=== PATIENT | female | born 1955 | race Caucasian/White ===

== ENCOUNTER 2021-11-27 01:02 | Day surgery (SDC) | payer MEDICARE, SELFPAY ==
--- NOTE | 2021-10-30 09:42 | SUR.PREOP ---
called pt regarding prep. We discussed preps and [facility] pharmacy's number was given to the patient and she said she would call them to arrange prep.
[2021-11-08 13:21] VITALS: BMI 44.5
[2021-11-27 07:10] VITALS: BP 146/73; PULSE 73; RESP 16; TEMP 36.2; O2SAT 99; BMI 43.4
--- NOTE | 2021-11-27 07:22 | WPDGICN ---
Assessment and Plan Assessment and plan (1) Positive colorectal cancer screening using Cologuard test: Code(s): R19.5 - Other fecal abnormalities Status: Acute Assessment and Plan: Patient found to have positive screening Cologuard test. Plan is for surveillance colonoscopy be at this time. Further recommendations will be given after endoscopy. GI Consult Note Consult date/time: 11/27/21 07:22 Reason for consult: Positive Cologuard test. HPI: Savannah Garcia is a 66 year old female Found to have positive screening Cologuard test. Patient reports that her current weight appetite and bowel movements are normal. She denies abdominal pain. Patient has had no bleeding. Patient presents today for neoplasia screening. Review of Systems Review of Systems: Review of systems noncontributory. [facility] Past Medical History Medical History (Updated 11/27/21 @ 07:23 by Chaim Hall MD) Acute bronchitis due to other specified organisms Body mass index [BMI] 40.0-44.9, adult (11/11/18) Elevated blood sugar Encounter for wellness examination Essential tremor Hyperlipidemia Mixed hyperlipidemia Type 2 diabetes mellitus Family History Family History (Updated 09/11/21 @ 09:[address] [facility]) Sibling Type 1 diabetes mellitus Father Family history of liver disease Mother Hyperlipidemia Daughter Endometriosis Other Family history of cardiovascular disease Social History Social History (Updated 09/11/21 @ 09:[address] [facility]) Smoking status: Never smoker Second hand tobacco smoke exposure: No Alcohol intake: never Substance use: never Substance use type: does not use Living arrangements: with family Spiritual care concerns: No Meds Home Medications and Allergies Home Medications Medication Instructions Recorded Confirmed Type blood-glucose meter (Accu-Chek #1 ea 09/24/21 Rx Alisson Plus Meter) lancets (Accu-Chek Softclix #100 ea 09/24/21 Rx Lancets) sodium sul 1.479 gram-potas ch See Rx Instructions PO PER PKG DIR 10/19/21 Rx 0.188 gram-magnes sul 0.225 gram #24 tabs tablet (Sutab) blood sugar diagnostic (Accu-Chek #100 ea 10/31/21 Rx Alisson Plus test strips) propranolol 10 mg tablet 20 mg PO Q12H 11/08/21 11/08/21 History terbinafine HCl 250 mg tablet 250 mg PO DAILY 11/08/21 11/08/21 History metformin 500 mg tablet 1,000 mg PO BID #60 tabs 11/20/21 Rx Allergies Allergy/AdvReac Type Severity Reaction Status Date / Time No Known Allergies Allergy Mild Verified 11/27/21 07:16 Exam Narrative: Physical exam reveals patient to be alert. Vital signs stable. HEENT exam is unremarkable. Patient is anicteric. Lungs are clear to auscultation and percussion. Heart is without murmur or extra sounds. Abdominal exam bowel sounds are present soft nontender with no organomegaly. Digital external rectal exam is normal.
[2021-11-27] MEDS: LACTATED RINGERS 1,000 ML 150 ML IV CONT (07:37)
[2021-11-27 07:39] LABS: Glucose Point of Care 117 mg/dl (65-105)
--- NOTE | 2021-11-27 08:05 | WPDANESEPPF ---
Anes - Initial Pre Proc Eval Procedure: Operation Date: 11/27/21 08:30 Proposed Procedures p Colonoscopy - Chaim Hall MD Date/Time: 11/27/21 08:05 Surgeon: Chaim Hall MD Pre Op Diagnosis: positive cologuard Patient Data Age: 66 Gender: F Height: 1.6 m Weight: 111.2 kg Last Vital Signs Temp 97.2 F L 11/27/21 07:10 Pulse 73 11/27/21 07:10 Resp 16 11/27/21 07:10 BP 146/73 H 11/27/21 07:10 Pulse Ox 99 11/27/21 07:10 O2 Del Method Room Air 11/27/21 07:10 Allergies Allergy/AdvReac Type Severity Reaction Status Date / Time No Known Allergies Allergy Mild Verified 11/27/21 07:16 Home Medications Medication Instructions Recorded Confirmed Type blood-glucose meter (Accu-Chek #1 ea 09/24/21 11/27/21 Rx Alisson Plus Meter) lancets (Accu-Chek Softclix #100 ea 09/24/21 11/27/21 Rx Lancets) sodium sul 1.479 gram-potas ch See Rx Instructions PO PER PKG DIR 10/19/21 11/27/21 Rx 0.188 gram-magnes sul 0.225 gram #24 tabs tablet (Sutab) blood sugar diagnostic (Accu-Chek #100 ea 10/31/21 11/27/21 Rx Alisson Plus test strips) propranolol 10 mg tablet 20 mg PO Q12H 11/08/21 11/27/21 History terbinafine HCl 250 mg tablet 250 mg PO DAILY 11/08/21 11/27/21 History metformin 500 mg tablet 1,000 mg PO BID #60 tabs 11/20/21 11/27/21 Rx Laboratory Tests 11/27/21 07:31 POC Capillary Glucose 117 mg/dl H mg/dl (65-105) Patient hx anesthesia problems: none Family hx anesthesia problems: none Results Review: All pre-operative results and documents have been reviewed as part of the pre-operative evaluation. [facility] Past Medical History Medical History (Updated 11/27/21 @ 07:23 by Chaim Hall MD) Acute bronchitis due to other specified organisms Body mass index [BMI] 40.0-44.9, adult (11/11/18) Elevated blood sugar Encounter for wellness examination Essential tremor Hyperlipidemia Mixed hyperlipidemia Type 2 diabetes mellitus Family History Family History (Updated 09/11/21 @ 09:05 by Sakina Tran [facility]) Sibling Type 1 diabetes mellitus Father Family history of liver disease Mother Hyperlipidemia Daughter Endometriosis Other Family history of cardiovascular disease Social History Social History (Updated 09/11/21 @ 09:04 by Sakina Tran [facility]) Smoking status: Never smoker Second hand tobacco smoke exposure: No Alcohol intake: never Substance use: never Substance use type: does not use Living arrangements: with family Spiritual care concerns: No Anes - Eval Final PreProcedure Day of Procedure 11/27/21 08:05 Patient weight: morbidly obese Heart: regular rate and rhythm Lungs: clear to auscultation Airway: Mallampati scale class II Neurological: alert and oriented Last oral intake: >/= 8 hours ASA classification: III Emergent: no Anesthetic plan: proceed Anesthesia type and monitoring: general GIVS and standard monitoring Results Review: All pre-operative results and documents have been reviewed as part of the pre-operative evaluation. Informed Consent: The patient's anesthetic plan and its attendant risks and benefits were discussed with the patient/family/POA. Questions were solicited and answers provided to the satisfaction of the patient/family/POA.
[2021-11-27] MEDS: SIMETHICONE ORAL SUSPENSION 20 MG/0.3 ML 30 ML BOTTLE 0.6 ML IRRIGATION (08:29)
[2021-11-27 08:43] VITALS: BP 105/63; PULSE 76; RESP 18; O2SAT 98
[2021-11-27 08:53] VITALS: BP 113/74; PULSE 69; RESP 24; O2SAT 99
== END 2021-11-27 09:09 | disposition home or self-care (01) ==
PROVIDERS: PCP Family Medicine; Visit Provider Internal Medicine Gastroenterology
PROC: 0DJD8ZZ Inspection of Lower Intestinal Tract, Via Natural or Artificial Opening Endoscopic (ICD-10-PCS; CPT 45378; principal; 2021-11-27 08:30)
DX: R19.5 Other fecal abnormalities (principal); D12.2 Benign neoplasm of ascending colon; D12.5 Benign neoplasm of sigmoid colon; K57.30 Diverticulosis of large intestine without perforation or abscess without bleeding; E78.2 Mixed hyperlipidemia; E11.9 Type 2 diabetes mellitus without complications; G25.0 Essential tremor; Z79.84 Long term (current) use of oral hypoglycemic drugs; E66.01 Morbid (severe) obesity due to excess calories; Z68.41 Body mass index [BMI] 40.0-44.9, adult
CPT/HCPCS: 45385; 82948; 88305; J2704; J7120

== ENCOUNTER 2022-01-23 14:30 | Outpatient (RCR) | payer MEDICARE, SELFPAY ==
[2021-11-14 09:40] VITALS: BMI 44.6
[2021-11-14 09:46] VITALS: BMI 44.6
== END 2022-01-29 10:44 | disposition home or self-care (01) ==
LOC: ANHDMC 14:30
PROVIDERS: PCP Family Medicine; Visit Provider Family Medicine
DX: E11.9 Type 2 diabetes mellitus without complications (principal); Z71.3 Dietary counseling and surveillance; Z71.89 Other specified counseling
CPT/HCPCS: 97802; G0108; G0109

== ENCOUNTER 2024-08-13 11:37 | Outpatient (CLI) | payer MEDICARE, SELFPAY ==
--- NOTE | ~2024-08-13 | XR_ITS ---
Left Knee Technique: AP, lateral, and sunrise views were obtained. Clinical History: Pain Findings: No fracture or dislocation is seen. Osseous alignment is anatomic. Moderate tricompartmenta l degenerative change present. No joint effusion is seen. Impression: Moderate tricompartmental degenerative change. Reviewed, dictated and finalized at location . Impression: Moderate tricompartmental degenerative change.
== END 2024-08-13 11:38 | disposition home or self-care (01) ==
PROVIDERS: PCP Family Medicine; Visit Provider Student in an Organized Health Care Education/Training Program
DX: M17.12 Unilateral primary osteoarthritis, left knee (principal)
CPT/HCPCS: 73562

== ENCOUNTER 2025-04-07 00:33 | Day surgery (SDC) | payer MEDICARE, SELFPAY ==
[2025-02-14 13:48] VITALS: BMI 42.5
--- NOTE | 2025-02-28 06:43 | SUR.PREOP ---
Patient left a message on GI lab phone on Friday stating she needs to cancel and reschedule. Will call to follow up.
--- NOTE | 2025-03-24 14:22 | PC.NURSE ---
patient states no new medical or surgical history since last phone call on 02/14/25.
[2025-04-07 11:34] VITALS: BP 137/88; PULSE 69; RESP 20; TEMP 36.6; O2SAT 99
[2025-04-07] MEDS: LACTATED RINGERS 1,000 ML 150 ML IV CONT (11:46)
--- NOTE | 2025-04-07 11:48 | WPDANESEPPF ---
Anes - Initial Pre Proc Eval Procedure: Operation Date: 04/07/25 14:00 Proposed Procedures p Screening Colonoscopy - Rodolfo Bejarano MD Date/Time: 04/07/25 11:48 Surgeon: Rodolfo Bejarano MD Pre Op Diagnosis: Personal history of colon polyps, unspecified Patient Data Age: 69 Gender: F Height: 1.6 m Weight: 111.1 kg Last Vital Signs Temp 36.6 C 04/07/25 11:34 Pulse 69 04/07/25 11:34 Resp 20 04/07/25 11:34 BP 137/88 04/07/25 11:34 Pulse Ox 99 04/07/25 11:34 O2 Del Method Room Air 04/07/25 11:34 Allergies Allergy/AdvReac Type Severity Reaction Status Date / Time No Known Allergies Allergy Mild Verified 03/24/25 14:19 Home Medications ?Medication ?Instructions ?Recorded ?Confirmed ?Type rosuvastatin 5 mg tablet 5 mg PO .THREE TIMES WEEKLY #38 04/12/24 04/07/25 Rx tabs lancets (Accu-Chek Softclix #100 ea 07/02/24 12/28/24 Rx Lancets) blood sugar diagnostic (Accu-Chek #100 ea 10/18/24 02/14/25 Rx Alisson Plus test strips) Held on 02/01/25. Instructions: Patient no longer taking accu-check guide strips #100 ea 10/22/24 02/14/25 Rx propranolol 10 mg tablet 30 mg (3 x 10 mg) PO Q12H 90 days 12/28/24 04/07/25 Rx #540 tabs blood sugar diagnostic (Accu-Chek #100 ea 02/01/25 02/14/25 Rx Guide test strips) metformin 500 mg tablet See Rx Instructions .Route 02/06/25 04/07/25 Rx .COMPLEX #360 tabs Patient hx anesthesia problems: none Family hx anesthesia problems: none Results Review: All pre-operative results and documents have been reviewed as part of the pre-operative evaluation. [facility] Past Medical History Medical History Atopic dermatitis Hyperlipidemia Type 2 diabetes mellitus Encounter for wellness examination Essential tremor Acute bronchitis due to other specified organisms Body mass index [BMI] 40.0-44.9, adult (11/11/18) Elevated blood sugar Mixed hyperlipidemia Family History Family History Sibling Type 1 diabetes mellitus Father Family history of liver disease Mother Hyperlipidemia Daughter Endometriosis Other Family history of cardiovascular disease Social History Social History Smoking status: Never smoker Second hand tobacco smoke exposure: No Alcohol intake: never Substance use: never Substance use type: does not use Lack of Transportation: No Lack of Food: Never True Current Housing: I Have Housing Concerned About Future Housing: No Difficulty Paying Gas/Electric Bills: No Difficulty Paying for Meds: No Currently Unemployed: No Education: Bachelor's Degree Difficulty w/ Childcare or Family Care: No Living arrangements: with family Occupation/Education: retired Gender identity (if verbalized by the patient): Female Sexual Orientation (if Verbalized by the Patient): Straight or Heterosexual Spiritual care concerns: No Agree to blood products: Yes Anes - Eval Final PreProcedure Day of Procedure 04/07/25 11:48 Patient weight: morbidly obese Heart: regular rate and rhythm Lungs: clear to auscultation Airway: Mallampati scale class III Neurological: alert and oriented Last oral intake: >/= 8 hours ASA classification: III Emergent: no Anesthetic plan: proceed Anesthesia type and monitoring: general GIVS and standard monitoring Results Review: All pre-operative results and documents have been reviewed as part of the pre-operative evaluation. Informed Consent: The patient's anesthetic plan and its attendant risks and benefits were discussed with the patient/family/POA. Questions were solicited and answers provided to the satisfaction of the patient/family/POA.
--- NOTE | 2025-04-07 12:40 | PM.HPGS ---
History of Present Illness History of Present Illness Consent: Risks, benefits, and alternatives have been discussed and questions answered. Patient agrees to proceed with procedure. Chief complaint: Personal history of colon polyps, unspecified Narrative: Savannah Garcia is a 69 year old female with colon polyp in 2021 Review of Systems Review of Systems: All systems reviewed & are unremarkable except as noted in HPI and below PMFSH Past Medical History Medical History (Updated 04/07/25 @ 12:40 by Rodolfo Bejarano MD) Colon polyp Atopic dermatitis Hyperlipidemia Type 2 diabetes mellitus Encounter for wellness examination Essential tremor Acute bronchitis due to other specified organisms Body mass index [BMI] 40.0-44.9, adult (11/11/18) Elevated blood sugar Mixed hyperlipidemia Family History Family History Sibling Type 1 diabetes mellitus Father Family history of liver disease Mother Hyperlipidemia Daughter Endometriosis Other Family history of cardiovascular disease Social History Social History Smoking status: Never smoker Second hand tobacco smoke exposure: No Alcohol intake: never Substance use: never Substance use type: does not use Lack of Transportation: No Lack of Food: Never True Current Housing: I Have Housing Concerned About Future Housing: No Difficulty Paying Gas/Electric Bills: No Difficulty Paying for Meds: No Currently Unemployed: No Education: Bachelor's Degree Difficulty w/ Childcare or Family Care: No Living arrangements: with family Occupation/Education: retired Gender identity (if verbalized by the patient): Female Sexual Orientation (if Verbalized by the Patient): Straight or Heterosexual Spiritual care concerns: No Agree to blood products: Yes Meds Home Medications and Allergies Home Medications ?Medication ?Instructions ?Recorded ?Confirmed ?Type rosuvastatin 5 mg tablet 5 mg PO .THREE TIMES WEEKLY #38 04/12/24 04/07/25 Rx tabs lancets (Accu-Chek Softclix #100 ea 07/02/24 12/28/24 Rx Lancets) blood sugar diagnostic (Accu-Chek #100 ea 10/18/24 02/14/25 Rx Alisson Plus test strips) Held on 02/01/25. Instructions: Patient no longer taking accu-check guide strips #100 ea 10/22/24 02/14/25 Rx propranolol 10 mg tablet 30 mg (3 x 10 mg) PO Q12H 90 days 12/28/24 04/07/25 Rx #540 tabs blood sugar diagnostic (Accu-Chek #100 ea 02/01/25 02/14/25 Rx Guide test strips) metformin 500 mg tablet See Rx Instructions .Route 02/06/25 04/07/25 Rx .COMPLEX #360 tabs Allergies Allergy/AdvReac Type Severity Reaction Status Date / Time No Known Allergies Allergy Mild Verified 03/24/25 14:19 Vital Signs Vital Signs - 24 hr 04/07/25 11:34 Temperature 97.9 F Pulse Rate 69 Respiratory Rate 20 Blood Pressure 137/88 Pulse Oximetry 99 Oxygen Delivery Room Air Exam Const: General: comfortable and no acute distress HENMT: Face/Nose/Sinus: Normal nares present Eyes: General: appearance normal, both eyes and all related structures Neck: Neck: no JVD Resp: Auscultation: clear to auscultation bilaterally Cardio: Rate: regular rate Rhythm: regular rhythm GI: Inspection: non-distended GI Palp: Yes Soft to palpation Skin: General skin exam: normal color Extrem: General: normal to inspection Psych: Mental Status: mental status grossly normal Assessment and Plan Assessment and plan (1) Colon polyp: Code(s): K63.5 - Polyp of colon Status: Acute Assessment and Plan: colonoscopy
[2025-04-07 13:00] VITALS: BP 124/70; PULSE 81; RESP 23; O2SAT 99
[2025-04-07 13:10] VITALS: BP 129/78; PULSE 81; RESP 25; O2SAT 99
[2025-04-07 13:20] VITALS: BP 131/73; PULSE 76; RESP 23; O2SAT 96
== END 2025-04-07 13:30 | disposition home or self-care (01) ==
PROVIDERS: PCP Student in an Organized Health Care Education/Training Program; Referring Provider Internal Medicine Gastroenterology; Visit Provider Internal Medicine Gastroenterology
PROC: 0DJD8ZZ Inspection of Lower Intestinal Tract, Via Natural or Artificial Opening Endoscopic (ICD-10-PCS; CPT 45378; principal; 2025-04-07 14:00)
DX: Z12.11 Encounter for screening for malignant neoplasm of colon (principal); K64.8 Other hemorrhoids; K57.30 Diverticulosis of large intestine without perforation or abscess without bleeding; E11.9 Type 2 diabetes mellitus without complications; G25.0 Essential tremor; E78.2 Mixed hyperlipidemia; L20.9 Atopic dermatitis, unspecified; E66.01 Morbid (severe) obesity due to excess calories; Z68.41 Body mass index [BMI] 40.0-44.9, adult; Z79.84 Long term (current) use of oral hypoglycemic drugs; Z86.0100 Personal history of colon polyps, unspecified; Z82.49 Family history of ischemic heart disease and other diseases of the circulatory system
CPT/HCPCS: G0105; 82948; J1596; J2003; J2704; J7120